=== PATIENT | female | born 1960 | race Caucasian/White ===

== ENCOUNTER → 2016-11-25 | Outpatient (CLI) | payer OTHER ==
[~2016-11-25] MED LIST: ATOR40TA PO; CALC500C8 PO; GABA-282 PO; KLON0.5T PO; MELO15TA4 PO; METF500T PO
--- NOTE | 2016-11-25 23:54 | ECWPNPC ---
PATIENT NAME: WARREN MORALES : 1960 GENDER: FEMALE VISIT DATE: 11/25/2016 DISCHARGE DATE: 11/25/16 1124 VISIT LOCKED DATE TIME: PHYSICIAN: MONA JETER PHYSICIAN PAGER NO: INACTIVE RESOURCE: MONA JETER REASON FOR APPOINTMENT 1. BACK HISTORY OF PRESENT ILLNESS HISTORY OF PRESENT ILLNESS: HERE FOR F/U AND MANGEMENT OF CHRONIC LOW BACK PAINR>L.LAST VISIT WAS ONE YEAR AGO.HAD MULTIPLE FAMILY ISSUES AND COULDNT GET IN FOR F/U.REVIEWED MRI -2013.MULTI LEVEL DISC PROTRUSIONS.PAIN RADIATES INTO RIGHT LEG.PAIN AGGREVATED BY LIFTING OR PROLONGED WALKING OR STANDING.RELIEVED SOMEWHAT WITH NAPROXEN AND REST.RATING PAIN VAS 10/10. PAIN THE PATIENT DESCRIBES THE PAIN... FALL RISK SCREENING: SCREENING :NO FALLS IN THE PAST YEAR CURRENT MEDICATIONS TAKING CALCIUM CARBONATE 500 MG TABLET 1 TABLET ORALLY DAILY, NOTES: COUPLE OF DAYS AGO TAKING METFORMIN HCL 500 MG TABLET 1 TABLET WITH MEALS ORALLY DAILY, NOTES: 11/06/15 AT 0800 TAKING GABAPENTIN 300 MG CAPSULE 1 CAPSULE ORALLY QHS, NOTES: 1 WEEK AGO TAKING NAPROXEN 500 MG TABLET 1 TABLET NEEDED ORALLY EVERY 12 HRSPRN PAIN NOT-TAKING VALIUM 10 MG TABLET 1 ORALLY 1 TAB 1HR PRE PROC. MDD1, NOTES: 11/07/15 AT 0916 NOT-TAKING OXYCODONE HCL 5 MG TABLET 2 ORALLY 2 TAB PRE PROC. MDD2, NOTES: 11/07/15 AT 0916 NOT-TAKING ROBAXIN-750 750 MG TABLET 1 TABLET ORALLY 1 AT HS PRN MEDICATION LIST REVIEWED AND RECONCILED WITH THE PATIENT PAST MEDICAL HISTORY TOBACCO USE CHRONIC BACK PAIN ALLERGIES N.K.D.A. SURGICAL HISTORY HYSTERECTOMY 2013 RIGHT FOOT SURGERY 1994 HOSPITALIZATION/MAJOR DIAGNOSTIC PROCEDURE SURGERY RELATED REVIEW OF SYSTEMS CONSTITUTIONAL: ANY CHANGE IN YOUR MEDICAL CONDITION? NO . CHILLS NO . FEVER NO . INFECTION: DO YOU HAVE NEW INFECTIONS? NO . DO YOU HAVE HISTORY OF MRSA? NO . MUSCULOSKELETAL: ANY NEW PATTERNS OF PAIN OR NUMBNESS? NO . GASTROENTEROLOGY: ANY NEW CHANGE IN BOWEL CONTROL? NO . GENITOURINARY: ANY NEW CHANGE IN BLADDER CONTROL? NO . IS THERE A CHANCE YOU COULD BE ? NO . HEMATOLOGY/LYMPH: DO YOU TAKE ANY BLOOD THINNERS? (FOR EXAMPLE- COUMADIN, PLAVIX, AGGRENOX, PLATEL, PRADAXA, OR XARELTO) NO . WHEN WAS YOUR LAST DOSE? DATE: TIME: . NEUROLOGY: HAVE YOU FALLEN IN THE PAST 6 MONTHS? NO . ANY NEW EXTREMITY NUMBNESS OR WEAKNESS? NO . CARDIOLOGY: DO YOU HAVE A PACEMAKER OR DEFIBRILLATOR? NO . RESPIRATORY: HAVE YOU BEEN SICK IN THE PAST WEEK? NO . FEVER NO . FLU LIKE SYMPTOMS? NO . COUGH NO . INTEGUMENTARY: DO YOU HAVE ANY RASHES OR OPEN SORES? NO . ALLERGIC/IMMUNO: ARE YOU ALLERGIC TO SHELLFISH OR IV DYE? NO . ANY NEW ALLERGIES? NO . PSYCHIATRIC: DO YOU HAVE THOUGHTS OF HURTING YOURSELF OR SOMEONE ELSE? NO . ARE YOU ABUSED, NEGLECTED, OR IN AN UNSAFE ENVIRONMENT? NO . ENDOCRINOLOGY: ARE YOU DIABETIC? YES . OTHER: DO YOU NEED ANY PRESCRIPTIONS? YES, NAPROXIN . IF YES, PLEASE LIST: ____ . ANY NEW PROBLEMS WITH YOUR MEDICATIONS? NO . WHEN DID YOU LAST EAT? ____ . WHEN DID YOU LAST DRINK? ____ . WHAT DID YOU LAST DRINK? ____ . NAME OF PERSON DRIVING YOU HOME? ____ . DO YOU HAVE ANY OTHER QUESTIONS OR CONCERNS NO . REVIEWED BY: PROVIDER: MONA BRUNER . VITAL SIGNS WT 197.4 LBS, HT 68 IN, BMI 30.01 INDEX, BP 122/80 MM HG, HR 83 /MIN, RR 16 /MIN, TEMP 97.2 F, OXYGEN SAT % 98%, SAFE IN ENV? (Y/N) Y, NA INITIALS TL 1035, REVIEWED BY: EM. EXAMINATION GENERAL EXAMINATION: GENERAL APPEARANCE:COMFORTABLE. PSYCHAFFECT NORMAL. LUNGS:LUNG FIERRO ARE CLEAR TO AUSCULTATION BILATERALLY. GOOD MOVEMENT OF AIR. HEART:S1, S2 IN A REGULAR RATE AND RHYTHM. NO SIGNIFICANT MURMURS, RUBS OR GALLOPS NOTED. LUMBAR SPINE/LOWER BACK: PALPATION:VERTEBRAL SPINE TENDERNESS, PARASPINAL TENDERNESS R>L. MOTOR SYSTEM:5/5 BLE. SENSORY EXAM:NORMAL BILATERAL LE. ASSESSMENTS LOW BACK PAIN - M54.5 (PRIMARY) LUMBOSACRAL SPONDYLOSIS - M47.816 TREATMENT LOW BACK PAIN REFILL NAPROXEN TABLET, 500 MG, 1 TABLET NEEDED, ORALLY, EVERY 12 HRSPRN PAIN, 30 DAY(S), 30, REFILLS 2 NO ENTIRE SPINE 1 [id number] PROCEDURE CODES FA211 ESTABILISHED PATIENT [facility] CHARGE DISPOSITION & COMMUNICATION FOLLOW UP 6 WEEKS ELECTRONICALLY SIGNED BY ZOHREH CABRERA ON 11/25/2016 AT 01:29 PM EDT DISCLAIMER : THIS IS A VISIT SUMMARY EXTRACTED FROM THE [employer] CHART. IT IS NOT A COPY OF THE [employer] PROGRESS NOTE. MAKENZIE
== END | disposition home or self-care (01) ==
LOC: M PAIN 10:20
PROVIDERS: ATTEND Nurse Practitioner Family
DX: G89.29 Other chronic pain (principal); M54.9 Dorsalgia, unspecified; Z79.899 Other long term (current) drug therapy; Z79.84 Long term (current) use of oral hypoglycemic drugs; F17.210 Nicotine dependence, cigarettes, uncomplicated

== ENCOUNTER → 2016-12-30 | Outpatient (CLI) | payer OTHER ==
[~2016-12-30] MED LIST changes: -ATOR40TA PO; +ATOR40TA75 PO; -METF500T PO; +METF500T13 PO
--- NOTE | 2016-12-30 22:59 | REP ---
Clinical: Lower back pain. Technique: AP, lateral, bilateral oblique and coned-down views of the lumbosacral spine. Comparison: 09/07/2014. Findings: Alignment and lordosis maintained. No acute fracture / compression injury or subluxation. Moderate multilevel degenerative changes include endplate sclerosis and marginal spurring. Disc space narrowing along with hypertrophic facet changes are also appreciated predominantly at the L4-5 and L5-S1 levels. Impression: Moderate multilevel degenerative changes predominantly involving the L4-5 and L5-S1 levels Signed by Brooks Thacker MD 12/30/2016 10:51 P
== END ==
LOC: M RAD 09:36
PROVIDERS: ATTEND Nurse Practitioner Family
DX: M54.5 Low back pain (principal); M51.36 Other intervertebral disc degeneration, lumbar region

== ENCOUNTER → 2017-01-06 | Outpatient (CLI) | payer OTHER ==
--- NOTE | 2017-01-07 01:14 | ECWPNPC ---
PATIENT NAME: WARREN MORALES : 1960 GENDER: FEMALE VISIT DATE: 01/06/2017 DISCHARGE DATE: 01/06/17926 VISIT LOCKED DATE TIME: PHYSICIAN: MONA JETER PHYSICIAN PAGER NO: INACTIVE RESOURCE: MONA JETER REASON FOR APPOINTMENT 1. BACK HISTORY OF PRESENT ILLNESS HISTORY OF PRESENT ILLNESS: HERE FOR F/U AND MANGEMENT OF CHRONIC LOW BACK PAINR>L..REVIEWED MRI -2013.MULTI LEVEL DISC PROTRUSIONS.PAIN RADIATES INTO RIGHT LEG.PAIN AGGREVATED BY LIFTING OR PROLONGED WALKING OR STANDING.RELIEVED SOMEWHAT WITH NAPROXEN AND REST.RATING PAIN VAS 8/10.REVIEWED XRAY L/S SPINE ORDERED AT LAST VISIT.SHOWING MODERATE FACET DEGENERATIVE CHANGES.HAS FAILED CONSERVATIVE TREATMENT. PAIN THE PATIENT DESCRIBES THE PAIN... THE PATIENT DESCRIBES THE PAIN... FALL RISK SCREENING: SCREENING :NO FALLS IN THE PAST YEAR CURRENT MEDICATIONS TAKING CALCIUM CARBONATE 500 MG TABLET 1 TABLET ORALLY DAILY, NOTES: COUPLE OF DAYS AGO TAKING METFORMIN HCL 500 MG TABLET 1 TABLET WITH MEALS ORALLY DAILY, NOTES: 11/06/15 AT 0800 TAKING NAPROXEN 500 MG TABLET 1 TABLET NEEDED ORALLY EVERY 12 HRSPRN PAIN NOT-TAKING GABAPENTIN 300 MG CAPSULE 1 CAPSULE ORALLY QHS, NOTES: 1 WEEK AGO NOT-TAKING VALIUM 10 MG TABLET 1 ORALLY 1 TAB 1HR PRE PROC. MDD1, NOTES: 11/07/15 AT 0916 NOT-TAKING OXYCODONE HCL 5 MG TABLET 2 ORALLY 2 TAB PRE PROC. MDD2, NOTES: 11/07/15 AT 0916 NOT-TAKING ROBAXIN-750 750 MG TABLET 1 TABLET ORALLY 1 AT HS PRN MEDICATION LIST REVIEWED AND RECONCILED WITH THE PATIENT PAST MEDICAL HISTORY TOBACCO USE CHRONIC BACK PAIN ALLERGIES N.K.D.A. SURGICAL HISTORY HYSTERECTOMY 2013 RIGHT FOOT SURGERY 1994 HOSPITALIZATION/MAJOR DIAGNOSTIC PROCEDURE SURGERY RELATED REVIEW OF SYSTEMS REVIEWED BY: PROVIDER: MONA BRUNER . CONSTITUTIONAL: ANY CHANGE IN YOUR MEDICAL CONDITION? NO . CHILLS NO . FEVER NO . INFECTION: DO YOU HAVE NEW INFECTIONS? NO . DO YOU HAVE HISTORY OF MRSA? NO . MUSCULOSKELETAL: ANY NEW PATTERNS OF PAIN OR NUMBNESS? YES, PAIN NOW GOES ACROSS BOTTOM OF LOWER BACK . GASTROENTEROLOGY: ANY NEW CHANGE IN BOWEL CONTROL? NO . GENITOURINARY: ANY NEW CHANGE IN BLADDER CONTROL? NO . IS THERE A CHANCE YOU COULD BE ? NO . HEMATOLOGY/LYMPH: DO YOU TAKE ANY BLOOD THINNERS? (FOR EXAMPLE- COUMADIN, PLAVIX, AGGRENOX, PLATEL, PRADAXA, OR XARELTO) NO . WHEN WAS YOUR LAST DOSE? DATE: TIME: . NEUROLOGY: HAVE YOU FALLEN IN THE PAST 6 MONTHS? NO . ANY NEW EXTREMITY NUMBNESS OR WEAKNESS? NO . CARDIOLOGY: DO YOU HAVE A PACEMAKER OR DEFIBRILLATOR? NO . RESPIRATORY: HAVE YOU BEEN SICK IN THE PAST WEEK? NO . FEVER NO . FLU LIKE SYMPTOMS? NO . COUGH NO . INTEGUMENTARY: DO YOU HAVE ANY RASHES OR OPEN SORES? NO . ALLERGIC/IMMUNO: ARE YOU ALLERGIC TO SHELLFISH OR IV DYE? NO . ANY NEW ALLERGIES? NO . PSYCHIATRIC: DO YOU HAVE THOUGHTS OF HURTING YOURSELF OR SOMEONE ELSE? NO . ARE YOU ABUSED, NEGLECTED, OR IN AN UNSAFE ENVIRONMENT? NO . ENDOCRINOLOGY: ARE YOU DIABETIC? NO . OTHER: DO YOU NEED ANY PRESCRIPTIONS? NO . IF YES, PLEASE LIST: ____ . ANY NEW PROBLEMS WITH YOUR MEDICATIONS? NO . WHEN DID YOU LAST EAT? ____ . WHEN DID YOU LAST DRINK? ____ . WHAT DID YOU LAST DRINK? ____ . NAME OF PERSON DRIVING YOU HOME? ____ . DO YOU HAVE ANY OTHER QUESTIONS OR CONCERNS NO . VITAL SIGNS WT 186 LBS, HT 68 IN, BMI 28.28 INDEX, BP 134/86 MM HG, HR 62 /MIN, RR 16 /MIN, TEMP 97.6 F, OXYGEN SAT % 98%, SAFE IN ENV? (Y/N) Y, NA INITIALS MI 08:53, REVIEWED BY: BRY. EXAMINATION GENERAL EXAMINATION: GENERAL APPEARANCE:COMFORTABLE. PSYCHAFFECT NORMAL. LUNGS:LUNG FIERRO ARE CLEAR TO AUSCULTATION BILATERALLY. GOOD MOVEMENT OF AIR. HEART:S1, S2 IN A REGULAR RATE AND RHYTHM. NO SIGNIFICANT MURMURS, RUBS OR GALLOPS NOTED. LUMBAR SPINE/LOWER BACK: PALPATION:VERTEBRAL SPINE TENDERNESS, PARASPINAL TENDERNESS R>L.SPECIFIC POINT TENDERNESS OVER RIGHT SIJ.. MOTOR SYSTEM:5/5 BLE. SENSORY EXAM:NORMAL BILATERAL LE. ASSESSMENTS SACROILIAC JOINT PAIN - M53.3 (PRIMARY) LUMBAR FACET ARTHROPATHY - M12.88 TREATMENT SACROILIAC JOINT PAIN [facility] MRI SPINE, L.S. WITHOUT [id number] NOTES: CONTINUE NAPROXEN 500MG AT NIGHT.START TYLENOL 650MG 2 TAB IN AMRIGHT SIJ. PROCEDURE CODES FA211 ESTABILISHED PATIENT [facility] CHARGE DISPOSITION & COMMUNICATION FOLLOW UP 2WK POST (REASON: RIGHT SIJ) ELECTRONICALLY SIGNED BY ZOHREH CABRERA ON 01/06/2017 AT 01:59 PM EDT DISCLAIMER : THIS IS A VISIT SUMMARY EXTRACTED FROM THE [employer] CHART. IT IS NOT A COPY OF THE [employer] PROGRESS NOTE. MTDD
== END | disposition home or self-care (01) ==
LOC: M PAIN 08:40
PROVIDERS: ATTEND Nurse Practitioner Family
DX: G89.29 Other chronic pain (principal); M53.3 Sacrococcygeal disorders, not elsewhere classified; M12.88 Other specific arthropathies, not elsewhere classified, other specified site; Z79.899 Other long term (current) drug therapy; Z79.84 Long term (current) use of oral hypoglycemic drugs; F17.210 Nicotine dependence, cigarettes, uncomplicated

== ENCOUNTER → 2017-02-17 | Outpatient (CLI) | payer OTHER ==
--- NOTE | 2017-02-17 09:57 | REP ---
MR LUMBAR SPINE WITHOUT CONTRAST: HISTORY: Sacroiliac joint pain. . COMPARISON: 11/16/2013. Decreased signal intensity on T2-weighted images is present in the L3-4 and L4-5 intervertebral discs. The discs are decreased in height. These findings are consistent with disc degeneration. There is no disc bulge or herniation at the L1-2, L2-3 and L5-S1 levels. There is hypertrophy of the posterior articulating facets at the L2-3 and L5-S1 levels. The nerves exit the neural foramina without compression. A diffuse disc bulge is present at the L3-4 level. There is minimal compression of the thecal sac. There is hypertrophy of the ligamenta flava and posterior articulating facets. The L3 nerves exit the neural foramina without compression. A diffuse disc bulge and small disc protrusion central and eccentric to the left are present at the L4-5 level. The disc protrusion is increased in size. There is minimal compression of the thecal sac and left L5 nerve as it exits the thecal sac. There is hypertrophy of the posterior articulating facets. The L4 nerves exit the neural foramina without compression. The conus medullaris is normal in appearance terminating at the level of the T12-L1 intervertebral disc. Normal signal intensity is present in the lumbar vertebral bodies. IMPRESSION: 1. Diffuse disc bulge at the L3-4 level with minimal thecal sac compression. 2. Diffuse disc bulge at and small disc protrusion central and eccentric to the left at the L4-5 level with minimal compression of the thecal sac and left L5 nerve as it exits the thecal sac. The disc protrusion is increased in size. Signed by Erick Dove MD 02/17/2017 10:21 A
== END ==
LOC: M PLARAD 07:37
PROVIDERS: ATTEND Nurse Practitioner Family
DX: M53.3 Sacrococcygeal disorders, not elsewhere classified (principal); M51.06 Intervertebral disc disorders with myelopathy, lumbar region

== ENCOUNTER → 2017-03-06 | Outpatient (CLI) | payer OTHER ==
--- NOTE | 2017-03-18 00:47 | ECWPNPC ---
PATIENT NAME: WARREN MORALES : 1960 GENDER: FEMALE VISIT DATE: 03/06/2017 DISCHARGE DATE: 03/06/17 1301 VISIT LOCKED DATE TIME: PHYSICIAN: MONA JETER PHYSICIAN PAGER NO: INACTIVE RESOURCE: MONA JETER REASON FOR APPOINTMENT 1. REVIEW MRI HISTORY OF PRESENT ILLNESS HISTORY OF PRESENT ILLNESS: HERE FOR F/U AND MANGEMENT OF CHRONIC LOW BACK PAINR>L..REVIEWED MRI -.MULTI LEVEL DISC PROTRUSIONS.PAIN RADIATES INTO RIGHT LEG.PAIN AGGREVATED BY LIFTING OR PROLONGED WALKING OR STANDING.RELIEVED SOMEWHAT WITH NAPROXEN AND REST.RATING PAIN VAS 8/10.HAS FAILED CONSERVATIVE TREATMENT. PAIN THE PATIENT DESCRIBES THE PAIN... THE PATIENT DESCRIBES THE PAIN... CURRENT MEDICATIONS TAKING CALCIUM CARBONATE 500 MG TABLET 1 TABLET ORALLY DAILY TAKING METFORMIN HCL 500 MG TABLET 1 TABLET WITH MEALS ORALLY DAILY TAKING NAPROXEN 500 MG TABLET 1 TABLET NEEDED ORALLY EVERY 12 HRSPRN PAIN NOT-TAKING GABAPENTIN 300 MG CAPSULE 1 CAPSULE ORALLY QHS, NOTES: 1 WEEK AGO NOT-TAKING VALIUM 10 MG TABLET 1 ORALLY 1 TAB 1HR PRE PROC. MDD1, NOTES: 11/07/15 AT 0916 NOT-TAKING OXYCODONE HCL 5 MG TABLET 2 ORALLY 2 TAB PRE PROC. MDD2, NOTES: 11/07/15 AT 0916 NOT-TAKING ROBAXIN-750 750 MG TABLET 1 TABLET ORALLY 1 AT HS PRN PAST MEDICAL HISTORY TOBACCO USE CHRONIC BACK PAIN ALLERGIES N.K.D.A. VITAL SIGNS WT 186 LBS, HT 68 IN, BMI 28.28 INDEX, BP 121/77 MM HG, HR 78 /MIN, RR 18 /MIN, TEMP 97.2 F, OXYGEN SAT % 94, REVIEWED BY: NL. EXAMINATION GENERAL EXAMINATION: GENERAL APPEARANCE:COMFORTABLE. PSYCHAFFECT NORMAL. LUNGS:LUNG FIERRO ARE CLEAR TO AUSCULTATION BILATERALLY. GOOD MOVEMENT OF AIR. HEART:S1, S2 IN A REGULAR RATE AND RHYTHM. NO SIGNIFICANT MURMURS, RUBS OR GALLOPS NOTED. LUMBAR SPINE/LOWER BACK: PALPATION:VERTEBRAL SPINE TENDERNESS, PARASPINAL TENDERNESS R>L.SPECIFIC POINT TENDERNESS OVER RIGHT SIJ.. MOTOR SYSTEM:5/5 BLE. SENSORY EXAM:NORMAL BILATERAL LE. ASSESSMENTS SACROILIAC JOINT PAIN - M53.3 (PRIMARY) LUMBAR FACET ARTHROPATHY - M12.88 PROTRUSION OF LUMBAR INTERVERTEBRAL DISC - M51.26 TREATMENT SACROILIAC JOINT PAIN NOTES: L4/5 LESI,LUMBAR EPIDURAL INJECTION: YOUR PROCEDURE MATERIAL WAS PRINTED. PREVENTIVE MEDICINE PRE PROCEDURE INSTRUCTIONS REVIEWED WITH PT EXPRESSING UNDERSTANDING. PROCEDURE CODES FA211 ESTABILISHED PATIENT [facility] CHARGE DISPOSITION & COMMUNICATION FOLLOW UP 2WK POST (REASON: L4/5 LESI) ELECTRONICALLY SIGNED BY ZOHREH CABRERA ON 03/17/2017 AT 06:08 PM EDT DISCLAIMER : THIS IS A VISIT SUMMARY EXTRACTED FROM THE [employer] CHART. IT IS NOT A COPY OF THE [employer] PROGRESS NOTE. MTDD
== END ==
LOC: M PAIN 11:45
PROVIDERS: ATTEND Nurse Practitioner Family
DX: M53.3 Sacrococcygeal disorders, not elsewhere classified (principal); M12.88 Other specific arthropathies, not elsewhere classified, other specified site; M51.26 Other intervertebral disc displacement, lumbar region; G89.29 Other chronic pain; Z79.891 Long term (current) use of opiate analgesic; Z79.899 Other long term (current) drug therapy; Z79.84 Long term (current) use of oral hypoglycemic drugs

== ENCOUNTER → 2017-03-19 | Outpatient (CLI) | payer OTHER ==
[~2017-03-19] MED LIST changes: +ISOVUE-M 300 61% 15ML VIAL (Q9967) As Ordered ONE; +LIDOCAINE 1% SDV INJ 30 ML VIAL As Ordered ONE; +diazePAM 5 MG TAB As Ordered ONE; +methylPREDNISolone SUSP 40 MG/ML (DEPO-medrol) VIAL (J1030) As Ordered ONE; +oxyCODONE 5MG TAB As Ordered ONE
--- NOTE | 2017-03-20 08:57 | REP ---
FLUOROSCOPIC GUIDED SPINE INJECTION: All imaging was reviewed with Dr. Rebolledo prior to dictation. The portable C-arm was provided in the OR for Dr. Arriola for fluoroscopic guidance. Two intraoperative spot films were obtained using last image hold technology for needle placement verification for this right lumbar spine injection. The films are on the PACS system and are available for review. 16 seconds of fluoroscopy were utilized for this procedure. Reviewed by VALENTE Mesa 03/20/2017 09:46 AEdited and Signed by Faisal Rebolledo MD 03/20/2017 08:00 P
--- NOTE | 2017-03-26 01:03 | ECWPNPC ---
PATIENT NAME: WARREN MORALES : 1960 GENDER: FEMALE VISIT DATE: 03/19/2017 DISCHARGE DATE: 03/19/17 1128 VISIT LOCKED DATE TIME: PHYSICIAN: MITCHEL ALFARO PHYSICIAN PAGER NO: INACTIVE RESOURCE: MITCHEL ALFARO REASON FOR APPOINTMENT 1. LESI HISTORY OF PRESENT ILLNESS HISTORY OF PRESENT ILLNESS: PAIN THE PATIENT DESCRIBES THE PAIN... FALL RISK SCREENING: SCREENING :NO FALLS IN THE PAST YEAR CURRENT MEDICATIONS TAKING CALCIUM CARBONATE 500 MG TABLET 1 TABLET ORALLY DAILY, NOTES: 03/17/17 TAKING METFORMIN HCL 500 MG TABLET 1 TABLET WITH MEALS ORALLY DAILY, NOTES: 03/17/17 0800 TAKING TRAMADOL HCL 50 MG TABLET 1 TABLET NEEDED ORALLY Q8H PRN MDD3, NOTES: 03/16/17 TAKING VITAMIN D 1000 UNIT TABLET 1 TABLET ORALLY ONCE A DAY, NOTES: 03/16/17 0800 NOT-TAKING GABAPENTIN 300 MG CAPSULE 1 CAPSULE ORALLY QHS, NOTES: 1 WEEK AGO NOT-TAKING VALIUM 10 MG TABLET 1 ORALLY 1 TAB 1HR PRE PROC. MDD1, NOTES: 11/07/15 AT 0916 NOT-TAKING OXYCODONE HCL 5 MG TABLET 2 ORALLY 2 TAB PRE PROC. MDD2, NOTES: 11/07/15 AT 0916 NOT-TAKING ROBAXIN-750 750 MG TABLET 1 TABLET ORALLY 1 AT HS PRN DISCONTINUED NAPROXEN 500 MG TABLET 1 TABLET NEEDED ORALLY EVERY 12 HRSPRN PAIN MEDICATION LIST REVIEWED AND RECONCILED WITH THE PATIENT PAST MEDICAL HISTORY TOBACCO USE CHRONIC BACK PAIN ALLERGIES N.K.D.A. REVIEW OF SYSTEMS REVIEWED BY: PROVIDER: . CONSTITUTIONAL: ANY CHANGE IN YOUR MEDICAL CONDITION? NO . CHILLS NO . FEVER NO . INFECTION: DO YOU HAVE NEW INFECTIONS? NO . DO YOU HAVE HISTORY OF MRSA? NO . MUSCULOSKELETAL: ANY NEW PATTERNS OF PAIN OR NUMBNESS? NO . GASTROENTEROLOGY: ANY NEW CHANGE IN BOWEL CONTROL? NO . GENITOURINARY: ANY NEW CHANGE IN BLADDER CONTROL? NO . IS THERE A CHANCE YOU COULD BE ? NO . HEMATOLOGY/LYMPH: DO YOU TAKE ANY BLOOD THINNERS? (FOR EXAMPLE- COUMADIN, PLAVIX, AGGRENOX, PLATEL, PRADAXA, OR XARELTO) NO . WHEN WAS YOUR LAST DOSE? DATE: TIME: . NEUROLOGY: HAVE YOU FALLEN IN THE PAST 6 MONTHS? NO . ANY NEW EXTREMITY NUMBNESS OR WEAKNESS? NO . CARDIOLOGY: DO YOU HAVE A PACEMAKER OR DEFIBRILLATOR? NO . RESPIRATORY: HAVE YOU BEEN SICK IN THE PAST WEEK? NO . FEVER NO . FLU LIKE SYMPTOMS? NO . COUGH NO . INTEGUMENTARY: DO YOU HAVE ANY RASHES OR OPEN SORES? NO . ALLERGIC/IMMUNO: ARE YOU ALLERGIC TO SHELLFISH OR IV DYE? NO . ANY NEW ALLERGIES? NO . PSYCHIATRIC: DO YOU HAVE THOUGHTS OF HURTING YOURSELF OR SOMEONE ELSE? NO . ARE YOU ABUSED, NEGLECTED, OR IN AN UNSAFE ENVIRONMENT? NO . ENDOCRINOLOGY: ARE YOU DIABETIC? NO . OTHER: DO YOU NEED ANY PRESCRIPTIONS? NO . IF YES, PLEASE LIST: ____ . ANY NEW PROBLEMS WITH YOUR MEDICATIONS? NO . WHEN DID YOU LAST EAT? ____03/18/17 1800 . WHEN DID YOU LAST DRINK? ____03/18/171999 . WHAT DID YOU LAST DRINK? ____WATER . NAME OF PERSON DRIVING YOU HOME? ____PETER . DO YOU HAVE ANY OTHER QUESTIONS OR CONCERNS NO . VITAL SIGNS WT 193.0 LBS, HT 68 IN, BMI 29.34 INDEX, BP 133/80 MM HG, HR 69 /MIN, RR 18 /MIN, TEMP 97.2 F, OXYGEN SAT % 97%, SAFE IN ENV? (Y/N) YES, NA INITIALS MP 0996, REVIEWED BY: LAS. LORD INTERVERTEBRAL DISC DISORDER WITH RADICULOPATHY OF LUMBAR REGION - M51.16 (PRIMARY) PROCEDURES PRE PROCEDURE DIAGNOSIS LUMBAR DISC DISORDER WITH RADICULOPATHY POST PROCEDURE DIAGNOSIS LUMBAR DISC DISORDER WITH RADICULOPATHY PROCEDURE LUMBAR EPIDURAL STEROID INJECTION UNDER FLUOROSCOPIC GUIDANCE SURGEON DR. MITCHEL ALFARO PUNCH PRESS FEEDER NONE ANESTHESIA LOCAL PRE PROCEDURE NOTE THE PATIENT HAS A HISTORY OF CHRONIC LOW BACK PAIN. I EVALUATE THE PATIENT AND REVIEWED THE CHART. I WENT OVER THE RISKS, ALTERNATIVES, AND BENEFITS ASSOCIATED WITH THIS PROCEDURE. THE PATIENT WOULD LIKE TO PROCEED AND GIVE CONSENT TO PERFORMED THE PROCEDURE. THE PATIENT DENIES UNEXPLAINABLE WEIGHT LOSS, FEVER, CHILLS, OR NEW CHANGES IN URINARY OR BOWEL CONTROL. DESCRIPTION OF PROCEDURE THE PATIENT WAS BROUGHT TO THE PROCEDURE ROOM AND PLACED IN THE PRONE POSITION. THE LUMBOSACRAL AREA WAS CLEANED WITH BETADINE SOLUTION AND DRAPED ASEPTICALLY. THE PROCEDURE WAS DONE UNDER STERILE CONDITIONS. I CHECKED LATERALITY AND THE LEVEL WHERE THE PROCEDURE WAS GOING TO BE PERFORMED WITH THE PATIENT AND THE SUPPORTING STAFF AT THE MOMENT OF THE TIME OUT IN THE PROCEDURE ROOM. UNDER FLUOROSCOPIC GUIDANCE, THE TARGET POINT WAS SELECTED AT THE INTERLAMINAR LEVEL OF L3-L4. LIDOCAINE WAS USED TO NUMB THE SKIN AND THE SUBCUTANEOUS TISSUE BELOW IT. EPIDURAL TUOHY NEEDLE, 17-GAUGE, WAS ADVANCED UNDER FLUOROSCOPIC GUIDANCE AND FOLLOWING PATIENT FEEDBACK UNTIL THE EPIDURAL SPACE WAS REACHED, 7 CM DEEP INTO THE SKIN BY THE LOSS OF RESISTANCE TECHNIQUE. ISOVUE M DYE 30%, 0.25 ML, WAS INJECTED SHOWING ADEQUATE SPREAD OF THE DYE. THEN, A SOLUTION OF 3 ML OF NORMAL SALINE WITH DEPO-MEDROL 60 MG WAS INJECTED SLOWLY FOLLOWING PATIENT FEEDBACK. THERE WAS NO EVIDENCE OF BLOOD, PARESTHESIA OR CEREBROSPINAL FLUID DURING THE PROCEDURE. THE PATIENT WAS SENT TO THE RECOVERY ROOM. THE PATIENT WAS MOVING THE EXTREMITIES AND DOING WELL. THERE WAS NO COMPLICATION DURING THE PROCEDURE. FLUOROSCOPY TIME WAS 16 SECONDS. POST PROCEDURE NOTE THE PATIENT WILL BE SEEN IN A FOLLOW UP IN THE NEXT FEW WEEKS. INSTRUCTIONS WERE GIVEN, QUESTIONS WERE ANSWERED, AND THE PATIENT EXPRESSED UNDERSTANDING AND AGREES WITH THE PLAN. I, CHAVA NORTON, DOCUMENTED THE ABOVE INFORMATION ACTING A SCRIBE FOR DR. ALFARO. I HAVE REVIEWED THE ABOVE DOCUMENT, WRITTEN BY CHAVA KATE AND I VERIFY THAT IT IS ACCURATE. DIAGNOSTIC IMAGING [facility] FLUORO GUIDE SPINE INJECTION (PAIN)[id number] PROCEDURE CODES 78101 LUMBAR/SACRAL W/ IMAGING 6045F RADXPS IN END [id number] PXD DISPOSITION & COMMUNICATION FOLLOW UP 3 WEEKS ELECTRONICALLY SIGNED BY MITCHEL ALFARO MD ON 03/24/2017 AT 12:52 PM EDT DISCLAIMER : THIS IS A VISIT SUMMARY EXTRACTED FROM THE [employer] CHART. IT IS NOT A COPY OF THE [employer] PROGRESS NOTE. MTDD
== END ==
LOC: M PAIN 10:15
PROVIDERS: ATTEND Anesthesiology
DX: G89.29 Other chronic pain (principal); M51.16 Intervertebral disc disorders with radiculopathy, lumbar region; M54.5 Low back pain; Z79.891 Long term (current) use of opiate analgesic; Z79.899 Other long term (current) drug therapy; Z79.84 Long term (current) use of oral hypoglycemic drugs; Z87.891 Personal history of nicotine dependence
CPT/HCPCS: 62323; J1030; Q9967

== ENCOUNTER → 2017-10-08 | Outpatient (REF) | payer OTHER ==
[2017-10-08 12:01] LABS: PLATELET COUNT, AUTOMATED 162 10^3/uL (150-450)
[2017-10-08 12:12] LABS: INR 0.89; PROTHROMBIN TIME 12.1 SECONDS (12.4-14.5)
[2017-10-08 12:13] LABS: PARTIAL THROMBOPLASTIN TIME 26.9 SECONDS (26.8-37.9)
== END ==
LOC: M LABDRAW1 09:59
DX: M51.36 Other intervertebral disc degeneration, lumbar region (principal)

== ENCOUNTER 2018-12-13 14:09 | Emergency (ER) | payer OTHER ==
[~2018-12-13] VITALS: Ht 172.7 cm; Wt 81.8 kg
[~2018-12-13 14:09] MED LIST changes: -GABA-282 PO; +GABA-843 PO; -ISOVUE-M 300 61% 15ML VIAL (Q9967) As Ordered ONE; -LIDOCAINE 1% SDV INJ 30 ML VIAL As Ordered ONE; +MELO15TA28 PO; -MELO15TA4 PO; -diazePAM 5 MG TAB As Ordered ONE; -methylPREDNISolone SUSP 40 MG/ML (DEPO-medrol) VIAL (J1030) As Ordered ONE; -oxyCODONE 5MG TAB As Ordered ONE
--- NOTE | 2018-12-13 14:44 | REP ---
Right foot second digit four views: There are no comparisons. There is a K-wire stabilizing the proximal, mid and distal phalanges in satisfactory position alignment. There is no fracture or dislocation. I suspect there has been osteotomy at the PIP. This should be correlated with clinical findings. Electronically Signed by Faisal Mondragon MD 12/13/2018 02:35 P
[2018-12-13 16:03] VITALS: BP 159/88
== END 2018-12-13 16:03 | disposition home or self-care (01) ==
LOC: M ED 14:09
DX: S90.121A Contusion of right lesser toe(s) without damage to nail, initial encounter (principal); T84.293A Other mechanical complication of internal fixation device of bones of foot and toes, initial encounter; W50.0XXA Accidental hit or strike by another person, initial encounter; Y92.9 Unspecified place or not applicable; Y93.89 Activity, other specified; Y99.9 Unspecified external cause status; E11.9 Type 2 diabetes mellitus without complications; Z79.84 Long term (current) use of oral hypoglycemic drugs

== ENCOUNTER → 2019-01-18 | Outpatient (REF) | payer OTHER ==
[2019-01-18 14:08] LABS: BASO % 0.4 % (0.0-1.0); EOS # 0.1 10^3/uL (0.0-0.50); EOS % 1.2 % (0.0-3.0); HEMATOCRIT 38.2 % (36.0-47.0); HEMOGLOBIN 12.5 g/dl (12.0-15.5); LYMPH # 1.6 10^3/uL (1.5-4.5); MEAN CORPUSCULAR HEMOGLOBIN 30.9 pg (27.0-33.0); MEAN CORPUSCULAR HGB CONC 32.7 g/dl (32.0-36.5); MEAN CORPUSCULAR VOLUME 94.3 fl (80.0-96.0); MONO # 0.4 10^3/uL (0.0-0.8); MONO % 6.2 % (0.0-5.0); NEUTROPHILS # 3.6 10^3/uL (1.8-7.7); NEUTROPHILS % 63.8 % (36.0-66.0); PLATELET COUNT, AUTOMATED 146 10^3/uL (150-450); RED BLOOD COUNT 4.05 10^6/uL (4.00-5.40); WHITE BLOOD COUNT 5.7 10^3/uL (4.0-10.0)
[2019-01-18 14:30] LABS: ERYTHROCYTE SEDIMENTATION RATE 3 mm/hr (0-30)
== END ==
LOC: M LABDRAW1 12:27
DX: Z47.89 Encounter for other orthopedic aftercare (principal)

== ENCOUNTER → 2019-06-18 | Outpatient (CLI) | payer OTHER ==
--- NOTE | 2019-06-18 16:36 | REPVR ---
PROCEDURE INFORMATION: Exam: MR Lumbar Spine Without Contrast. Exam date and time: 06/18/2019 10:07 AM Age: 59 years old Clinical indication: Low back pain; Additional info: M51.36 oth ddd lumbar ? listhesis hnp stenosis ner TECHNIQUE: Imaging protocol: Multiplanar magnetic resonance images of the lumbar spine without intravenous contrast. COMPARISON: MRI-Spine, L.S. without con 02/17/2017 8:13 AM FINDINGS: Vertebrae: Unremarkable. Spinal cord: Normal signal. No cord compression. L1-L2: No significant disc disease. No significant spinal stenosis. L2-L3: No significant disc disease. No significant spinal stenosis. L3-L4: There is a moderate degenerative central spinal stenosis at L3-L4 secondary to diffuse annular bulging, thickened ligamentum flavum and facet joint arthropathy. There is mild foraminal narrowing on the right secondary to bulging of the disc in the foraminal zone, which also demonstrates a tear in the right posterolateral portion of the annulus. There is no extruded nuclear material. There is no lateral recess stenosis. L4-L5: Bulging disc annulus at L4-L5 and stable appearance of a left paracentral disc protrusion effacing the ventral subarachnoid space with mild posterior displacement of the traversing L5 nerve root on the left. There is also a mild to moderate central spinal stenosis secondary to the disc protrusion and thickened ligamentum flavum with minimal facet joint arthropathy. L5-S1: No significant disc disease. Soft tissues: Unremarkable. IMPRESSION: 1. Moderate degenerative central spinal stenosis at L3-L4. Bulging annulus on the right in the foraminal zone associated with a tear within the annulus. No extrusion of nuclear material demonstrated. There is mild foraminal narrowing on the right. 2. [id number] central spinal stenosis at L4-L5 secondary to a bulging annulus and left paracentral disc protrusion grossly stable in appearance. There is mild posterior displacement of the traversing L5 nerve root without impingement on the exiting L4 nerve root. Electronically signed by: Juan Antonio Martinez On 06/18/2019 16:35:43 PM
== END ==
LOC: M PLARAD 08:46
PROVIDERS: ATTEND Physician Assistant
DX: M51.36 Other intervertebral disc degeneration, lumbar region (principal)

== ENCOUNTER → 2019-08-26 | Outpatient (REF) | payer OTHER ==
[2019-08-26 10:22] LABS: PLATELET COUNT, AUTOMATED 158 10^3/uL (150-450)
[2019-08-26 10:29] LABS: INR 0.99; PROTHROMBIN TIME 12.8 SECONDS (11.8-14.0)
== END ==
LOC: M LABDRAW1 08:37
PROVIDERS: ATTEND Physician Assistant
DX: D69.1 Qualitative platelet defects (principal); Z01.812 Encounter for preprocedural laboratory examination; M48.061 Spinal stenosis, lumbar region without neurogenic claudication

== ENCOUNTER → 2019-11-18 | Outpatient (CLI) | payer OTHER ==
--- NOTE | 2019-11-18 15:11 | REP ---
Duplex extremity venous ultrasound: Right lower extremity. History: Pain in the right knee and leg. Findings: The deep veins are anechoic and fully compressible from the groin to the popliteal fossa in the right lower extremity. Color flow imaging is homogeneous. Spectral Doppler interrogation demonstrates intact respiratory variation in flow and normal manual augmentation of flow. There is no evidence of deep vein thrombosis. Impression: Negative right lower extremity duplex venous ultrasound. No evidence of deep vein thrombosis. Electronically Signed by Johann Wang MD 11/18/2019 03:03 P
== END ==
LOC: M RAD 14:00
PROVIDERS: ATTEND Physician Assistant
DX: M25.561 Pain in right knee (principal); M79.604 Pain in right leg

== ENCOUNTER → 2019-11-19 | Outpatient (CLI) | payer OTHER ==
--- NOTE | 2019-11-20 08:31 | REP ---
RIGHT KNEE, FIVE VIEWS: Five views right knee performed. There is no acute fracture or dislocation. There is minimal medial joint space narrowing and subchondral sclerosis. There is mild lateral patellofemoral compartment narrowing and subchondral sclerosis. There is mild spurring of the lateral patellar facet. I do not see a significant joint effusion. IMPRESSION: Mild degenerative changes. Electronically Signed by Faisal Rebolledo MD 11/20/2019 09:32 P
== END ==
LOC: M WUC 13:58
PROVIDERS: ATTEND Physician Assistant
DX: M25.561 Pain in right knee (principal)

== ENCOUNTER → 2021-06-18 | Outpatient (REF) | payer OTHER ==
[~2021-06-18] MED LIST changes: +GABA-282 PO; -GABA-843 PO
[2021-06-18 22:05] LABS: RSV AMPLIFICATION NEGATIVE (NEGATIVE)
== END ==
LOC: M LAB REF 21:03
PROVIDERS: ATTEND Physician Assistant Medical
DX: R50.9 Fever, unspecified (principal)

== ENCOUNTER → 2022-04-08 | Outpatient (REF) | payer OTHER ==
[2022-04-08 17:39] LABS: FREE T4 0.87 NG/DL (0.76-1.46); FREE THYROXINE INDEX 1.9 % (1.3-4.8); THYROID STIMULATING HORMONE 2.92 uIU/ML (0.358-3.740); THYROXINE (T4) 5.8 UG/DL (4.5-12.0)
== END ==
LOC: M LAB REF 16:32
PROVIDERS: ATTEND Pediatrics
DX: R79.89 Other specified abnormal findings of blood chemistry (principal)

== ENCOUNTER → 2022-05-07 | Outpatient (CLI) | payer OTHER | LOC: M WHC 13:36 | PROVIDERS: ATTEND Pediatrics | DX: Z12.31 Encounter for screening mammogram for malignant neoplasm of breast (principal); Z13.820 Encounter for screening for osteoporosis; M85.89 Other specified disorders of bone density and structure, multiple sites ==

== ENCOUNTER → 2022-08-06 | Outpatient (REF) | payer OTHER ==
[2022-08-06 15:22] LABS: CHOLESTEROL RISK RATIO 3.87 (<5); HDL CHOLESTEROL 52.9 MG/DL (>40); LDL CHOLESTEROL 114.1 MG/DL (<100)
[2022-08-06 15:50] LABS: HEMOGLOBIN A1c 6.8 % (4.0-6.0)
== END ==
LOC: M LAB REF 13:08
PROVIDERS: ATTEND Pediatrics
DX: E11.9 Type 2 diabetes mellitus without complications (principal); E78.5 Hyperlipidemia, unspecified

== ENCOUNTER → 2022-12-02 | Outpatient (REF) | payer OTHER ==
[2022-12-02 18:20] LABS: CHOLESTEROL RISK RATIO 2.75 (<5); HDL CHOLESTEROL 44.6 MG/DL (>40); LDL CHOLESTEROL 46.6 MG/DL (<100); NON-HDL-C 78.4 MG/DL
[2022-12-02 18:25] LABS: HEMOGLOBIN A1c 6.8 % (4.0-6.0)
== END ==
LOC: M LAB REF 17:12
PROVIDERS: ATTEND Pediatrics
DX: E78.5 Hyperlipidemia, unspecified (principal); E11.9 Type 2 diabetes mellitus without complications

== ENCOUNTER → 2023-05-27 | Outpatient (REF) | payer OTHER ==
[2023-06-09 16:11] LABS: CREATININE, URINE 190.4 MG/DL; MAU/CREAT RATIO 16.2 MCG/MG (0.0-30.0)
== END ==
LOC: M LAB REF 12:21
PROVIDERS: ATTEND Pediatrics
DX: E11.9 Type 2 diabetes mellitus without complications (principal)

== ENCOUNTER → 2023-09-01 | Outpatient (REF) | payer OTHER ==
[~2023-09-01] MED LIST changes: -KLON0.5T PO; +KLON0.5T8 PO
[2023-09-01 18:19] LABS: HEMATOCRIT 39.3 % (36.0-47.0); MEAN CORPUSCULAR HGB CONC 33.1 g/dl (32.0-36.5); MEAN CORPUSCULAR VOLUME 90.8 fl (80.0-96.0); PLATELET COUNT, AUTOMATED 145 10^3/uL (150-450); RED BLOOD COUNT 4.33 10^6/uL (4.00-5.40)
[2023-09-01 18:50] LABS: ALKALINE PHOSPHATASE 100 U/L (46-116); ALT/SGPT 44 U/L (7.0-40); AST/SGOT 20 U/L (<34); BILIRUBIN,TOTAL 0.3 MG/DL (0.3-1.2); BLOOD UREA NITROGEN 14 MG/DL (9-23); CALCIUM LEVEL 8.7 MG/DL (8.3-10.6); CARBON DIOXIDE LEVEL 27 MMOL/L (20-31); CHLORIDE LEVEL 110 MMOL/L (98-107); CHOLESTEROL LEVEL 108 MG/DL (<200); CHOLESTEROL RISK RATIO 2.59 (<5); CREATININE FOR GFR 0.66 MG/DL (0.55-1.30); GLOMERULAR FILTRATION RATE > 60.0 (>45); GLUCOSE, FASTING 102 MG/DL (74-106); HDL CHOLESTEROL 41.6 MG/DL (>40); LDL CHOLESTEROL 28.8 MG/DL (<100); NON-HDL-C 66.4 MG/DL; POTASSIUM SERUM 4.3 MMOL/L (3.5-5.1); SODIUM LEVEL 139 MMOL/L (136-145); TOTAL PROTEIN 6.6 G/DL (5.7-8.2); TRIGLYCERIDES LEVEL 188 MG/DL (<150)
== END ==
LOC: M LAB REF 17:46
PROVIDERS: ATTEND Pediatrics
DX: E11.9 Type 2 diabetes mellitus without complications (principal); E78.5 Hyperlipidemia, unspecified

== ENCOUNTER → 2023-09-30 | Outpatient (CLI) | payer OTHER | LOC: M WHC 14:55 | PROVIDERS: ATTEND Pediatrics | DX: Z12.31 Encounter for screening mammogram for malignant neoplasm of breast (principal) ==

== ENCOUNTER → 2024-01-06 | Outpatient (REF) | payer OTHER | LOC: M LAB REF 20:58 | PROVIDERS: ATTEND Physician Assistant | DX: J02.9 Acute pharyngitis, unspecified (principal) ==

== ENCOUNTER → 2024-04-09 | Outpatient (REF) | payer OTHER ==
[~2024-04-09] MED LIST changes: +GABA-1172 PO; -GABA-282 PO
[2024-04-09 14:05] LABS: HEMOGLOBIN A1c 6.9 % (4.0-6.0)
== END ==
LOC: M LAB REF 11:53
PROVIDERS: ATTEND Pediatrics
DX: E11.9 Type 2 diabetes mellitus without complications (principal); E55.9 Vitamin D deficiency, unspecified

== ENCOUNTER → 2024-04-19 | Outpatient (CLI) | payer OTHER | LOC: M SOG 13:43 | PROVIDERS: ATTEND Orthopaedic Surgery | DX: M54.50 Low back pain, unspecified (principal) ==

== ENCOUNTER → 2024-04-19 | Outpatient (CLI) | payer OTHER | LOC: M SOG 15:30 | PROVIDERS: ATTEND Orthopaedic Surgery | DX: M54.50 Low back pain, unspecified (principal); M47.817 Spondylosis without myelopathy or radiculopathy, lumbosacral region ==

== ENCOUNTER → 2024-05-28 | Outpatient (CLI) | payer OTHER | LOC: M RAD 07:15 | PROVIDERS: ATTEND Orthopaedic Surgery | DX: M47.816 Spondylosis without myelopathy or radiculopathy, lumbar region (principal) ==

== ENCOUNTER 2024-07-01 12:49 | Outpatient (RCR) | payer OTHER | END 2024-07-23 | LOC: M PT 12:49 | PROVIDERS: ATTEND Orthopaedic Surgery | DX: M54.50 Low back pain, unspecified (principal); M47.816 Spondylosis without myelopathy or radiculopathy, lumbar region ==

== ENCOUNTER → 2024-07-19 | Outpatient (REF) | payer OTHER ==
[2024-07-19 19:02] LABS: HEMOGLOBIN 13.9 g/dl (12.0-15.5); MEAN CORPUSCULAR HGB CONC 33.1 g/dl (32.0-36.5); MEAN CORPUSCULAR VOLUME 90.7 fl (80.0-96.0); PLATELET COUNT, AUTOMATED 152 10^3/uL (150-450); RED BLOOD COUNT 4.63 10^6/uL (4.00-5.40); WHITE BLOOD COUNT 6.4 10^3/uL (4.0-10.0)
[2024-07-19 19:21] LABS: ALBUMIN 4.3 G/DL (3.2-5.2); ALKALINE PHOSPHATASE 116 U/L (35-104); ALT/SGPT 42 U/L (7.0-40); AST/SGOT 19 U/L (<34); BILIRUBIN,TOTAL 0.3 MG/DL (0.3-1.2); BLOOD UREA NITROGEN 15 MG/DL (9-23); CALCIUM LEVEL 9.6 MG/DL (8.3-10.6); CARBON DIOXIDE LEVEL 27 MMOL/L (20-31); CHLORIDE LEVEL 109 MMOL/L (98-107); CHOLESTEROL LEVEL 134 MG/DL (<200); CHOLESTEROL RISK RATIO 2.89 (<5); CREATININE FOR GFR 0.75 MG/DL (0.55-1.30); GLOMERULAR FILTRATION RATE > 60.0 (>45); GLUCOSE, FASTING 100 MG/DL (74-106); HDL CHOLESTEROL 46.3 MG/DL (>40); LDL CHOLESTEROL 55.5 MG/DL (<100); NON-HDL-C 87.7 MG/DL; POTASSIUM SERUM 4.5 MMOL/L (3.5-5.1); SODIUM LEVEL 144 MMOL/L (136-145); TOTAL PROTEIN 7.3 G/DL (5.7-8.2); TRIGLYCERIDES LEVEL 161 MG/DL (<150)
== END ==
LOC: M LAB REF 18:02
PROVIDERS: ATTEND Pediatrics
DX: E11.9 Type 2 diabetes mellitus without complications (principal); E78.5 Hyperlipidemia, unspecified

== ENCOUNTER → 2024-11-09 | Outpatient (REF) | payer OTHER ==
[2024-11-09 18:41] LABS: THYROID STIMULATING HORMONE 4.547 uIU/ML (0.55-4.78)
[2024-11-09 18:42] LABS: FREE T4 1.15 NG/DL (0.89-1.76)
== END ==
LOC: M LAB REF 17:49
PROVIDERS: ATTEND Pediatrics
DX: R79.89 Other specified abnormal findings of blood chemistry (principal); E11.9 Type 2 diabetes mellitus without complications